=== PATIENT | male | born 1945 | race Caucasian/White ===

== ENCOUNTER 2018-04-14 09:48 | Emergency (ER) | payer MEDICARE, SELFPAY ==
[2018-04-14 09:50] VITALS: BP 130/71; BP 161/76; PULSE 73; RESP 17; TEMP 36.7; O2SAT 97; O2SAT 98
[2018-04-14 09:55] VITALS: BP 145/68; PULSE 77; RESP 18
[2018-04-14 10:00] VITALS: BP 121/70; PULSE 78; RESP 18
--- NOTE | 2018-04-14 10:02 | DI.RAD.S_ITS ---
PROCEDURE: XR CHEST 1V INDICATIONS: chest pain TECHNIQUE: One view of the chest was acquired. COMPARISON: None. FINDINGS: Surgical changes and devices: Status post CABG procedure. Lungs and pleura: No pleural effusions or pneumothorax. Lungs are clear. Mediastinum: Mediastinal contours appear normal. Heart size is normal. Bones and chest wall: No suspicious bony lesions. Overlying soft tissues appear unremarkable. IMPRESSION: No acute cardiopulmonary disease process. Dictated by: Bibiana Baldwin MD, PhD on 04/14/2018 at 10:49 Approved by: Biibana Baldwin MD, PhD on 04/14/2018 at 10:50
[2018-04-14] MEDS: ASPIRIN 81 MG TAB 324 MG PO (10:08)
--- NOTE | 2018-04-14 10:09 | ED.CHESTPAIN ---
HPI - Chest Pain General Stated Complaint: ARMS TINGLING, SOB, PAIN IN BETWEEN SHOULDER BLADE Time Seen by Provider: 04/14/18 10:00 Source: patient History of Present Illness HPI narrative: this is a 73-year-old gentleman who comes to the emergency department with complaint of pain between his shoulder blades and back Um and running to his neck. Patient states that it started today. He did try nitro which was not helpful. He denies any chest pain or pressure. He is also feeling short of breath. He has a history of CABG as well as repeat angioplasty about 6 months ago in [facility] at [facility]. He does take a baby aspirin 81 mg, he has not had his aspirin dose today. He also has not had his blood pressure medication today which is metoprolol. Also has a history of hypertension, diabetes as well as dyslipidemia. He is accompanied by his here today while they are visiting the area. Review of Systems Review of Systems All systems reviewed & are unremarkable except as noted in HPI and below Cardiovascular Denies chest pain, Denies syncope, Reports radiating jaw, neck or arm pain, Denies dyspnea and Denies dyspnea on exertion Respiratory Denies cough, Denies dyspnea, Denies dyspnea on exertion and Denies wheezing Musculoskeletal Reports back pain ( pain between shoulder blades) Neurologic Denies syncope Allergic/Immunologic Denies wheezing Exam Initial Vital Signs Initial Vital Signs: GENERAL: Alert and oriented x three, Patient appears in moderate distress. He is not diaphoretic. HEENT: Head normocephalic, atraumatic, EOMI, pupils reactive, face symmetric, moist mucous membranes NECK: Supple, full range of motion CARDIOVASCULAR: Regular rate and rhythm without murmurs, rubs or gallops. RESPIRATORY: Breath sounds equal bilaterally, no wheezes rales or rhonchi. ABDOMEN: Soft, nontender. no bruits noted. Normoactive bowel sounds all 4 quadrants. No guarding or rebound, rigidity, no mass : EXTREMITIES: Normal range of motion, no clubbing or edema. 2+ pulses bilateral upper extremities. Neurovascularly intact NEUROLOGICAL: Cranial nerves II through XII grossly intact. Moving all extremities SKIN: Warm, dry, no petechiae, no rashes or lesions. Course Orders Ordered: ED Orders 04/14/18 10:02 XR chest 1V Stat EKG-12 Lead Stat 04/14/18 10:07 Complete Blood Count AUTO DIFF Stat Comprehensive Metabolic Panel Stat Lipase Stat Partial Thromboplastin Time Stat Prothrombin Time INR Stat Troponin & CK Cardiac Panel Stat MDM - Chest Pain Medical Records Data Attempting to obtain records from [facility] in [place] Lab Data Result diagrams: 04/14/18 10:07 04/14/18 10:07 Imaging Data Chest x-ray: My impression: No mediastinal widening. No pneumothorax. no other acute process noted. ECG Data Attestation: I personally reviewed and interpreted this ECG as follows: Interpretation: sinus rhythm sinus arrhythmia, patient has ST elevation in 2 3 in AVF there are Q-waves present in 3 and AVF. Patient also has some depression in V1 through V 3 does appear to have a right bundle branch block. Rate is 71, P are 159, QRS is 115 QTC is 412. No prior EKGs available. [facility] Narrative Medical decision making narrative: Spoke with Dr. Falk at [facility]. with plan for transfer for ST elevated [place]. Patient does have what appears to be a right bundle branch block on EKG but unknown if this is old or new vs. STEMI. patient does have preferred unsure when she will between upper extremities. Chest x-ray does not show mediastinal widening at this time. EKG was faxed to Dr. Siddiqui for review prior to arrival of the patient. Patient was given aspirin 324 mg 5000 unit heparin bolus, morphine here in the department. Critical Care Time Critical Care Time: Yes Total Critical Care Time: 35 Attestation: The high probability of a clinically significant, sudden or life threatening deterioration of the [] system(s) required my full and direct attention, intervention and personal management. The aggregate critical care time was [] minutes. This time is in addition to time spent performing reported procedures but includes the following: [] Data Review and interpretation [] Patient assessment and monitoring of vital signs [] Documentation [] Medication orders and management Discharge Plan Departure [facility] Imp[facility]: ST elevation (STEMI) myocardial infarction
[2018-04-14 10:10] VITALS: BP 130/67; PULSE 79; RESP 18; O2SAT 99
[2018-04-14] MEDS: HEPARIN 5,000 UNIT/ML VIAL 5000 UNIT IV (10:10)
[2018-04-14 10:15] VITALS: BP 130/62; PULSE 80; RESP 18; O2SAT 99
[2018-04-14 10:17] LABS: Add Manual Diff / Slide Review NO; Basophils Percent Auto 0.3 % (0-2); Hematocrit 41.4 % (41-53); Hemoglobin 13.8 g/dL (13.5-17.5); Lymphocytes Percent Auto 9.7 % (25-40); Mean Corpuscular HGB Conc 33.3 % (30-36); Mean Corpuscular Hemoglobin 27.6 PG (26-34); Mean Corpuscular Volume 82.9 fL (80-100); Neutrophils Absolute Auto 5400 /uL (3000-5900); Platelet Count 127 X10^3/uL (150-400); Red Cell Distribution Width 14.1 % (11.6-14.8); White Blood Cell Count 6.2 X10^3/uL (4.5-11.0)
[2018-04-14] MEDS: MORPHINE 4 MG/ML INJ IV (10:17)
[2018-04-14] MEDS: ONDANSETRON 4 MG/2 ML INJ IV (10:19)
--- NOTE | 2018-04-14 10:21 | ED_ITS ---
HPI - Chest Pain General Stated Complaint: ARMS TINGLING, SOB, PAIN IN BETWEEN SHOULDER BLADE Time Seen by Provider: 04/14/18 10:00 Source: patient History of Present Illness HPI narrative: this is a 73-year-old gentleman who comes to the emergency department with complaint of pain between his shoulder blades and back Um and running to his neck. Patient states that it started today. He did try nitro which was not helpful. He denies any chest pain or pressure. He is also feeling short of breath. He has a history of CABG as well as repeat angioplasty about 6 months ago in [facility] at [facility]. He does take a baby aspirin 81 mg, he has not had his aspirin dose today. He also has not had his blood pressure medication today which is metoprolol. Also has a history of hypertension, diabetes as well as dyslipidemia. He is accompanied by his here today while they are visiting the area. Review of Systems Review of Systems All systems reviewed & are unremarkable except as noted in HPI and below Cardiovascular Denies chest pain, Denies syncope, Reports radiating jaw, neck or arm pain, Denies dyspnea and Denies dyspnea on exertion Respiratory Denies cough, Denies dyspnea, Denies dyspnea on exertion and Denies wheezing Musculoskeletal Reports back pain ( pain between shoulder blades) Neurologic Denies syncope Allergic/Immunologic Denies wheezing Exam Initial Vital Signs Initial Vital Signs: GENERAL: Alert and oriented x three, Patient appears in moderate distress. He is not diaphoretic. HEENT: Head normocephalic, atraumatic, EOMI, pupils reactive, face symmetric, moist mucous membranes NECK: Supple, full range of motion CARDIOVASCULAR: Regular rate and rhythm without murmurs, rubs or gallops. RESPIRATORY: Breath sounds equal bilaterally, no wheezes rales or rhonchi. ABDOMEN: Soft, nontender. no bruits noted. Normoactive bowel sounds all 4 quadrants. No guarding or rebound, rigidity, no mass : EXTREMITIES: Normal range of motion, no clubbing or edema. 2+ pulses bilateral upper extremities. Neurovascularly intact NEUROLOGICAL: Cranial nerves II through XII grossly intact. Moving all extremities SKIN: Warm, dry, no petechiae, no rashes or lesions. Course Orders Ordered: ED Orders 04/14/18 10:02 XR chest 1V Stat EKG-12 Lead Stat 04/14/18 10:07 Complete Blood Count AUTO DIFF Stat Comprehensive Metabolic Panel Stat Lipase Stat Partial Thromboplastin Time Stat Prothrombin Time INR Stat Troponin & CK Cardiac Panel Stat MDM - Chest Pain Medical Records Data Attempting to obtain records from [facility] in [place] Lab Data Result diagrams: 04/14/18 10:07 04/14/18 10:07 Imaging Data Chest x-ray: My impression: No mediastinal widening. No pneumothorax. no other acute process noted. ECG Data Attestation: I personally reviewed and interpreted this ECG as follows: Interpretation: sinus rhythm sinus arrhythmia, patient has ST elevation in 2 3 in AVF there are Q-waves present in 3 and AVF. Patient also has some depression in V1 through V 3 does appear to have a right bundle branch block. Rate is 71, P are 159, QRS is 115 QTC is 412. No prior EKGs available. [facility] Narrative Medical decision making narrative: Spoke with Dr. Falk at [facility]. with plan for transfer for ST elevated [place]. Patient does have what appears to be a right bundle branch block on EKG but unknown if this is old or new vs. STEMI. patient does have preferred unsure when she will between upper extremities. Chest x-ray does not show mediastinal widening at this time. EKG was faxed to Dr. Siddiqui for review prior to arrival of the patient. Patient was given aspirin 324 mg 5000 unit heparin bolus, morphine here in the department. Critical Care Time Critical Care Time: Yes Total Critical Care Time: 35 Attestation: The high probability of a clinically significant, sudden or life threatening deterioration of the [] system(s) required my full and direct attention, intervention and personal management. The aggregate critical care time was [] minutes. This time is in addition to time spent performing reported procedures but includes the following: [] Data Review and interpretation [] Patient assessment and monitoring of vital signs [] Documentation [] Medication orders and management [facility]charge Plan [facility] ST [facility] ([facility]) myocardial infarction
[2018-04-14 10:24] LABS: INR 1.1 (0.9-1.3); Prothrombin Time 12.1 SECONDS (10.1-12.7)
[2018-04-14 10:26] LABS: PTT Partial Thromboplastin Tim 35 SECONDS (26.4-36.2)
[2018-04-14 10:30] LABS: Alanine Aminotransferase 37 IU/L (21-72); Albumin 4.9 g/dL (3.5-5.0); Albumin Globulin Ratio 1.5 (1.0-2.8); Alkaline Phosphatase 38 U/L (38-126); Aspartate Aminotransferase 43 IU/L (17-59); BUN Creatinine Ratio 22.5 (6-22); Bilirubin Total 0.9 mg/dL (0.2-1.3); Blood Urea Nitrogen 27 mg/dL (9-20); Calcium 9.7 mg/dL (8.4-10.2); Carbon Dioxide 27 mmol/L (22-32); Chloride 102 mmol/L (98-107); Creatine Kinase 163 U/L (55-170); Estimated Glomerular Filt Rate 59.2 mL/min (>60); Globulin 3.2 g/dL (1.7-4.1); Glucose 147 mg/dL (80-110); Lipase 35 U/L (23-300); Potassium 4.6 mmol/L (3.4-5.1); Sodium 142 mmol/L (137-145); Total Protein 8.1 g/dL (6.3-8.2)
[2018-04-14 10:45] LABS: Creatine Kinase MB 1.59 ng/mL (<2.37)
[2018-04-14 10:46] LABS: Troponin I < 0.012 ng/mL (0.01-0.034)
[2018-04-14 10:47] LABS: HEMOLYSIS 75 (0-50)
== END 2018-04-14 10:55 | disposition short-term general hospital (02) ==
LOC: ED 14:16
PROVIDERS: Emergency Provider Emergency Medicine
DX: I21.3 ST elevation (STEMI) myocardial infarction of unspecified site (principal)
CPT/HCPCS: 36591; 71045; 80053; 82550; 82553; 83690; 84484; 85025; 85610; 85730; 93005; 96374; 96375; 99283; 99285; 99291; J1644; J2270; J2405